=== PATIENT | female | born 1990 | race Caucasian/White ===

== ENCOUNTER 2021-02-15 14:30 | Emergency (ER) | payer SELFPAY ==
[~2021-02-15] VITALS: Ht 167.6 cm; Wt 125.6 kg
[2021-02-15 16:01] VITALS: BP 170/110
--- NOTE | 2021-02-15 16:01 | NUR ---
PT REC'VD DISCHARGE INSTRUCTIONS AND EDUCATION. PT HAD NO FURTHER QUESTIONS.
--- NOTE | 2021-02-15 16:13 | NUR ---
PT AMBULATED TO HI AREA, STEADY GAIT
== END 2021-02-15 16:15 | disposition home or self-care (01) ==
LOC: ED 16:09
DX: H60.501 Unspecified acute noninfective otitis externa, right ear (principal); J02.8 Acute pharyngitis due to other specified organisms; B97.89 Other viral agents as the cause of diseases classified elsewhere
CPT/HCPCS: 87081; 87880; 99283